=== PATIENT | female | born 1955 | race Caucasian/White ===

== ENCOUNTER 2017-02-01 11:56 | Emergency (ER) | payer BC ==
--- NOTE | 2017-02-01 12:28 | UC ---
Knee Pain HPI - HPI Summary HPI Summary: Pt presents with right knee and ankle pain following a fall a few hours ago. She was walking her dog down a slight grassy incline, slipped, and her knee buckled underneath her and her ankle twisted as she landed on it. Immediate pain , but was able to bear weight and continue walking. Has not taken anything for pain. Proceeded to . - History of Current Complaint Chief Complaint: UCLowerExtremity Stated Complaint: KNEE INJURY Time Seen by Provider: 02/01/17 12:27 Hx Obtained From: Patient Onset/Duration: Sudden Onset Severity Initially: Moderate Severity Currently: Moderate Pain Intensity: 4 Pain Scale Used: 0-10 Numeric Character: Sharp, Dull, Throbbing, Stiffness Aggravating Factor(s): Movement, Weight Bearing Alleviating Factor(s): Position Associated Signs And Symptoms: Positive: Negative Able to Bear Weight: Yes - Allergies/Home Medications Allergies/Adverse Reactions: Allergies Allergy/AdvReac Type Severity Reaction Status Date / Time No Known Allergies Allergy Verified 10/24/13 21:36 PMH/Surg Hx/FS Hx/Imm Hx Previously Healthy: Yes - Surgical History Surgical History: Yes Surgery Procedure, Year, and Place: HYSTERECTOMY - Social History Occupation: Employed Full-time Lives: Alone Alcohol Use: Occasionally Substance Use Type: None Smoking Status (MU): Never Smoked Tobacco Review of Systems Constitutional: Negative Respiratory: Negative Cardiovascular: Negative Neurovascular: Negative Musculoskeletal: Decreased ROM - Right knee, Edema - Right knee and ankle Neurological: Negative All Other Systems Reviewed And Are Negative: Yes Physical Exam Triage Information Reviewed: Yes Appearance: Well-Appearing, Well-Nourished Vital Signs: Initial Vital Signs Temp 98.2 F 02/01/17 12:07 Pulse 84 02/01/17 12:07 Resp 16 02/01/17 12:07 BP 156/71 02/01/17 12:07 Pulse Ox 100 02/01/17 12:07 Vital Signs Reviewed: Yes Musculoskeletal: Positive: Strength Intact, ROM Limited @ - Right knee: Pain with flexion >90deg. Is able to extend to 0deg.About right knee., Edema @ - About right knee. Lateral right ankle surrounding malleolus., Other: - NTTP around right knee or right ankle. No patella apprehension. Right knee: Negative Florencio, A/P drawer, Meli, and varus/valgus stress. Right ankle: no increased laxity. Neurological: Positive: Alert Psychological: Positive: Age Appropriate Behavior Knee Pain Course/Dx - Course Course Of Treatment: XR right knee - Kellgren and Robin grade 3 osteoarthritis. Small joint effusion. No acute process. XR right ankle - lateral soft tissue swelling. No acute process. Pt did not want HATTIE wrap today because they would not fit under her shoe. Provided with HATTIE wrap to take home. Offered toradol or short course of narcotic pain medication, but pt preferred to use ibuprofen. - Differential Dx/Diagnosis Differential Diagnosis/HQI/PQRI: Contusion, Dislocation, Fracture (Closed), Internal Derangement Of Knee, Sprain, Strain Provider Diagnoses: Internal derangement of the right knee. Right ankle sprain Discharge - Discharge Plan Condition: Stable Disposition: HOME Patient Education Materials: Ankle Sprain (ED) Forms: *Work Release Referrals: Merlyn Celaya MD [Primary Care Provider] - Additional Instructions: 1) HATTIE wrap and ice your knee and ankle today and tomorrow 2) Ibuprofen alternating with Tylenol for pain 3) If persisting or worsening symptoms beyond 1 week - follow up with Orthopedics.
--- NOTE | 2017-02-01 13:56 | RAD ---
INDICATION: Right ankle pain COMPARISON: None TECHNIQUE: AP, lateral, and oblique views were obtained. FINDINGS: There is no acute fracture. There is a corticated ossific density adjacent lateral malleolus which may be related to a prior injury. Ankle mortise is intact. There is mild lateral soft tissue swelling. IMPRESSION: NO ACUTE FRACTURE. MILD LATERAL SOFT TISSUE SWELLING.
--- NOTE | 2017-02-01 13:57 | RAD ---
Indication: RIGHT knee pain post fall onto bed. History of arthritis. Comparison: May 29, 2012 MRI. Technique: RIGHT knee: AP, tunnel, lateral, sunrise views. Report: Small suprapatellar joint effusion. Negative for fracture. Osteophytosis and advanced at the patellofemoral joint. Moderately severe lateral joint space narrowing and lateral facet patellofemoral joint space narrowing. Partial flattening of the femoral-tibial articular surfaces. Mild lateral subluxation of the patella relative to the femoral trochlea without change. Mild nonfocal soft tissue swelling. IMPRESSION: Kellgren and Robin grade 3 osteoarthritis. Small joint effusion. No fracture evident.
[2017-02-01 14:21] VITALS: BP 155/71
== END 2017-02-01 14:30 | disposition home or self-care (01) ==
LOC: UCEAST 11:56
DX: M23.91 Unspecified internal derangement of right knee (principal); S83.91XA Sprain of unspecified site of right knee, initial encounter; W01.0XXA Fall on same level from slipping, tripping and stumbling without subsequent striking against object, initial encounter; Y93.K1 Activity, walking an animal; Y92.9 Unspecified place or not applicable; Y99.9 Unspecified external cause status
CPT/HCPCS: 99201; G0463

== ENCOUNTER 2018-02-24 15:51 | Emergency (ER) | payer OTHER ==
--- OUTSIDE RECORDS SUMMARY | 2018-02-24 15:57 | XMS REPORT ---
:1955 External Reference #:[id number] Author Organization [facility] Address [address] [place] [address] Phone [phone] Care Team Providers Name Role Phone Rashid Everett MD Care Team Information Professor Of Food Biochemistry Unavailable Patient's Choice Primary Care Physician Unavailable Payers Type Date Identification Numbers Payment Provider Subscriber Commercial Policy Number: [id number] [facility] Flori Paige PayID: [id number] [address] [place] [address] Problems Description No Information Family History Date Family Member(s) Problem(s) Comments General Diabetes General Heart Disease General Stroke Social History Type Date Description Comments Lives With Alone Occupation Currently Working ETOH Use Denies alcohol use Smoking Patient has never smoked Allergies, Adverse Reactions, Alerts Date Description Reaction Status Severity Comments 02/17/2017 NKDA active Medications Medication Date Status Form Strength Qnty SIG Indications Ordering Provider 8HR Muscle 00/00/0 Active Tablets ER 650mg as needed Unknown Aches & Pain 000 No Active Hx Unknown Medications 017 - 018 Vital Signs Date Vital Result Comment 01/26/2018 Height 64 inches 5'4" Weight 187.00 lb Heart Rate 80 /min Respiratory Rate 16 /min Body Temperature 98.0 F Pain Level 2 BMI (Body Mass Index) 32.1 kg/m2 02/17/2017 Height 64 inches 5'4" Weight 192.00 lb Heart Rate 68 /min BP Systolic 128 mmHg BP Diastolic 74 mmHg Body Temperature 97.2 F Pain Level 4 BMI (Body Mass Index) 33.0 kg/m2 Results Description No Information Procedures Date CPT Code Description Status 01/02/2018 17348 Biopsy Skin Lesion Single Completed Encounters Type Date Location Provider CPT E/M Dx Office Visit 02/17/2017 [place] [id number] 8:30a [facility] M17.11 Plan of Care Future Appointment(s):02/06/2018 10:00 am - Ailyn Madrid MD at [facility]
--- NOTE | 2018-02-24 16:12 | UC ---
Lower Extremity/Ankle HPI - HPI Summary HPI Summary: 62-year-old woman comes to clinic today with a chief complaint of left leg pain after fall. Patient slipped and fell on the ice this morning. Had immediate pain left lateral knee and left lateral lower leg proximal aspect. Denies any foot or ankle or hip pain. Rest minimize the pain activity weightbearing makes the pain worse. She has been able to weight-bear. - History of Current Complaint Chief Complaint: UCLowerExtremity Stated Complaint: L LEG INJURY Time Seen by Provider: 02/24/18 16:04 Pain Intensity: 6 - Allergies/Home Medications Allergies/Adverse Reactions: Allergies Allergy/AdvReac Type Severity Reaction Status Date / Time No Known Allergies Allergy Verified 02/24/18 16:00 Home Medications: Home Medications Acetaminophen [APAP] 650 mg PO DAILY PRN 02/24/18 [History Confirmed 02/24/18] PMH/Surg Hx/FS Hx/Imm Hx Previously Healthy: Yes - Surgical History Surgical History: Yes Surgery Procedure, Year, and Place: HYSTERECTOMY - Family History Known Family History: Positive: Non-Contributory - Social History Alcohol Use: Rare Substance Use Type: None Smoking Status (MU): Never Smoked Tobacco Review of Systems All Other Systems Reviewed And Are Negative: Yes Constitutional: Positive: Negative Skin: Positive: Negative Eyes: Positive: Negative ENT: Positive: Negative Respiratory: Positive: Negative Cardiovascular: Positive: Negative Gastrointestinal: Positive: Negative Motor: Positive: Negative Neurovascular: Positive: Negative Musculoskeletal: Positive: Other: - SEE HPI Neurological: Positive: Negative Psychological: Positive: Negative Is Patient Immunocompromised?: No Physical Exam Triage Information Reviewed: Yes Appearance: Well-Appearing, No Pain Distress, Well-Nourished Vital Signs: Initial Vital Signs Temp 98 F 02/24/18 15:56 Pulse 90 02/24/18 15:56 Resp 18 02/24/18 15:56 BP 183/91 02/24/18 15:56 Pulse Ox 97 02/24/18 15:56 Vital Signs Reviewed: Yes Eye Exam: Normal Eyes: Positive: Conjunctiva Clear Neck exam: Normal Neck: Positive: Supple Respiratory: Positive: No respiratory distress Musculoskeletal: Positive: Other: - On examination patient is tender to palpation in the left lateral knee there is some swelling in that area. She also tender proximal fibula. Left ankle is soft nontender no swelling the foot is nontender. Ankle and foot have no swelling. Left hip is full range of motion nontender. Neurological Exam: Normal Neurological: Positive: Alert, Muscle Tone Normal Psychological Exam: Normal Psychological: Positive: Age Appropriate Behavior Skin Exam: Normal Lower Extremity Course/Dx - Course Course Of Treatment: Order Information: LOWER LEG LEFT. Accession Number: [id number]. CPT: 95454. INDICATION: Knee and lateral left lower leg pain after a fall. COMPARISON: None. TECHNIQUE: 4 view radiograph of the left knee and 2 views of the left lower leg. FINDINGS: The visualized bones are well- corticated and properly aligned. The joint spaces are. properly maintained. There is no radiographic evidence of joint effusion. There is no. acute fracture, dislocation or other focal bony abnormality. IMPRESSION: No radiographically apparent fracture or dislocation involving the left knee. or left lower leg. If the patient's symptoms persist, follow-up imaging is recommended. . < Electronically signed by Jason Phillips MD in OV> 02/24/181719. Order Information: KNEE LEFT 4+ VWS. Accession Number: [id number]. CPT: 03712. INDICATION: Knee and lateral left lower leg pain after a fall. COMPARISON: None. TECHNIQUE: 4 view radiograph of the left knee and 2 views of the left lower leg. FINDINGS: The visualized bones are well-corticated and properly aligned. The joint spaces are. properly maintained. There is no radiographic evidence of joint effusion. There is no. acute fracture, dislocation or other focal bony abnormality. IMPRESSION: No radiographically apparent fracture or dislocation involving the left knee. or left lower leg. If the patient's symptoms persist, follow-up imaging is recommended. . <Electronically signed by Jason Phillips MD in OV> 02/24/18 172. I discussed the x-ray results with the patient. No fracture dislocation seen. Patient declined an Danie wrap. The overall plan will be ibuprofen and ice elevation and rest and follow-up with primary care doctor if not completely improved. She declined an Danie wrap here in clinic. - Differential Dx/Diagnosis Provider Diagnosis: Left knee sprain, Contusion of left lower leg Discharge - Sign-Out/Discharge Documenting (check all that apply): Patient Departure All imaging exams completed and their final reports reviewed: Yes - Discharge Plan Condition: Stable Disposition: HOME Patient Education Materials: Knee Sprain (ED), Contusion in Adults (ED) Referrals: Merlyn Celaya MD [Primary Care Provider] - Additional Instructions: FOLLOW UP WITH YOUR DOCTOR IF NOT COMPLETELY IMPROVED. GET RECHECKED FOR ANY WORSENING OF YOUR CONDITION OR QUESTIONS OR CONCERNS. - Billing Disposition and Condition Condition: STABLE Disposition: Home
[2018-02-24 17:29] VITALS: BP 140/90
== END 2018-02-24 17:35 | disposition home or self-care (01) ==
LOC: UCEAST 15:51
DX: S83.92XA Sprain of unspecified site of left knee, initial encounter (principal); S80.12XA Contusion of left lower leg, initial encounter; W00.0XXA Fall on same level due to ice and snow, initial encounter; Y92.9 Unspecified place or not applicable
CPT/HCPCS: 99211; G0463